=== PATIENT | male | born 1985 | race Caucasian/White ===

== ENCOUNTER 2018-05-18 23:19 | Emergency (ER) | payer OTHER ==
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
[2018-05-18 23:30] VITALS: BP 133/99
[2018-05-18] MEDS ORDERED: SILVER sulfADI 1% CR 20GM TB TP ONE (23:30)
[2018-05-18] MEDS ORDERED: traMADol 50 MG TAB TH 2 TAB/BOTTLE PO ONE (23:30)
[2018-05-18] MEDS ORDERED: CEPH500T7 PO (23:31)
[2018-05-18] MEDS ORDERED: TRAM-420 PO (23:31)
[2018-05-18] MEDS ORDERED: SILV20CR2 TP (23:31)
[2018-05-18] MEDS ORDERED: CEPHALEXIN MONO 500 MG CAP PO ONE (23:35)
== END 2018-05-19 00:01 | disposition home or self-care (01) ==
LOC: ER 23:34
DX: T23.201A Burn of second degree of right hand, unspecified site, initial encounter (principal); T23.231A Burn of second degree of multiple right fingers (nail), not including thumb, initial encounter
CPT/HCPCS: 16020; 99283; C9399